=== PATIENT | female | born 1985 | race Asian ===

== ENCOUNTER 2017-10-19 13:50 | Observation (INO) | payer OTHER ==
[~2017-10-19] VITALS: Ht 154.9 cm; Wt 73.0 kg
== END 2017-10-19 15:05 | disposition home or self-care (01) ==
LOC: SPU 13:50
PROVIDERS: ADMIT Specialist; ATTEND Specialist
DX: O36.8130 Decreased fetal movements, third trimester, not applicable or unspecified (principal); Z3A.39 39 weeks gestation of pregnancy
CPT/HCPCS: 59025; 76815; 81002; G0378

== ENCOUNTER 2017-11-03 17:08 | Inpatient (IN) | payer OTHER ==
[~2017-11-03] VITALS: Ht 154.9 cm; Wt 74.8 kg
[2017-11-03] MEDS ORDERED: OXYTOCIN/0.9 % SODIUM CHLORIDE 1,000 ML IV SCH (21:52)
[2017-11-03] MEDS ORDERED: LR 1,000 ML IV SCH (21:52)
[2017-11-03] MEDS ORDERED: DINOPROSTONE 10 MG SUPP VG ONE (22:00)
[2017-11-03] MEDS ORDERED: TERBUTALINE SULFATE 1 MG/ML VIAL SUBCUT ONE (22:00)
[2017-11-03] MEDS ORDERED: NALBUPHINE HCL 10 MG/ML AMP IVP PRN (22:00)
[2017-11-03] MEDS ORDERED: NALBUPHINE HCL 10 MG/ML AMP IM PRN (22:00)
[2017-11-03 22:51] LABS: BASOPHILS % (AUTO) 0.4 % (0.0-2.0); EOSINOPHILS # (AUTO) 0.1 K/uL (0.0-0.4); HEMATOCRIT 32.7 % (36-48); LYMPHOCYTES # (AUTO) 1.6 K/uL (1.0-5.5); LYMPHOCYTES % (AUTO) 21.4 % (20.5-51.5); MEAN CORPUSCULAR HEMOGLOBIN 31 pg (27-31); MEAN CORPUSCULAR HGB CONC 34 % (32-36); MEAN CORPUSCULAR VOLUME 92 fL (79.0-98.0); MONOCYTES # (AUTO) 0.6 K/uL (0.0-1.0); MONOCYTES % (AUTO) 8.4 % (1.7-9.3); NEUTROPHILS # (AUTO) 5.1 K/uL (1.8-7.7); PLATELET COUNT (AUTO) 79 K/uL (130-430); RED BLOOD CELL COUNT(AUTO) 3.56 MIL/uL (4.2-6.2); RED CELL DISTRIBUTION WIDTH 13.9 % (9.0-15.0); WHITE BLOOD COUNT (AUTO) 7.4 K/uL (4.8-10.8)
[2017-11-03 23:13] LABS: NEUTROPHILS % (AUTO) 68.8 % (40.0-70.0)
[2017-11-04] MEDS ORDERED: CEFAZOLIN 2 GM IVPB PREMIX 50 ML IV ONE (09:45)
[2017-11-04] MEDS ORDERED: fentaNYL CITRATE/PF 100 MCG/2 ML AMP IVP PRN (13:15)
[2017-11-04] MEDS ORDERED: ONDANSETRON HCL 4 MG/2 ML VIAL IVP PRN (13:15)
[2017-11-04] MEDS ORDERED: KETOROLAC TROMETHAMINE 30 MG VIAL IVP PRN (13:15)
[2017-11-04] MEDS ORDERED: SEVOFLURANE 15 MIN GAS INH ONE (13:40)
[2017-11-04] MEDS: fentaNYL CITRATE/PF 100 MCG/2 ML AMP IVP PRN ×2 (13:40→14:10)
[2017-11-04] MEDS ORDERED: fentaNYL CITRATE/PF 100 MCG/2 ML AMP ONE ×2 (13:40→13:45)
[2017-11-04] MEDS ORDERED: NS 1000 ML IV.SOLN IV ONE (13:40)
[2017-11-04] MEDS ORDERED: ROCURONIUM BROMIDE 10 MG/ML (ZEMURON) ONE (13:40)
[2017-11-04] MEDS ORDERED: MIDAZOLAM HCL 5 MG/ML VIAL (VERSED) IV ONE (13:40)
[2017-11-04] MEDS ORDERED: LR 1,000 ML IV.SOLN IV ONE (13:40)
[2017-11-04] MEDS ORDERED: PROPOFOL 200MG/ 20ML VIAL (DIPRIVAN) IV ONE (13:40)
[2017-11-04] MEDS ORDERED: LR 1,000 ML IV SCH (14:23)
[2017-11-04] MEDS ORDERED: OXYTOCIN/0.9 % SODIUM CHLORIDE 1,000 ML IV ONE (14:23)
[2017-11-04] MEDS ORDERED: BISACODYL 10 MG/SUPPOSITORY RC PRN (14:30)
[2017-11-04] MEDS ORDERED: OXYCODONE/ACETAMINOPHEN 5-325 TABLET PO PRN (14:30)
[2017-11-04] MEDS ORDERED: DIPH-TET-PERTUS Vaccine 0.5 ML VIAL (ADACEL) I.M. PRN (14:30)
[2017-11-04] MEDS ORDERED: HYDROcodone/ACETAMIN 5-325 MG TAB (NORCO/ VICODIN) PO PRN (14:30)
[2017-11-04] MEDS ORDERED: LANOLIN 7 GM OINT. TP PRN (14:30)
[2017-11-04] MEDS ORDERED: MEASLES,MUMPS&RUBELLA VACC/PF 12500 UNIT/0.5 ML VIAL SUBQ PRN (14:30)
[2017-11-04] MEDS ORDERED: RHO(D) IMMUNE GLOBULIN/MALTOSE 1500 UNITS/1.3 ML (WINHRO) IM PRN (14:30)
[2017-11-04] MEDS ORDERED: SENNOSIDES/DOCUSATE SODIUM 1 TAB TABLET(SENOKOT-S) PO PRN (14:30)
[2017-11-04 16:30] VITALS: BP_SYST 108
[2017-11-04] MEDS: OXYCODONE/ACETAMINOPHEN 5-325 TABLET PO PRN (17:00)
[2017-11-04] MEDS: CEFAZOLIN 1 GM IVPB PREMIX 50 ML IV SCH (18:00)
[2017-11-04] MEDS ORDERED: TEMAZEPAM 15 MG CAPSULE PO PRN (21:00)
[2017-11-05] MEDS: OXYCODONE/ACETAMINOPHEN 5-325 TABLET PO PRN ×3 (01:28→20:15)
[2017-11-05] MEDS: CEFAZOLIN 1 GM IVPB PREMIX 50 ML IV SCH ×2 (01:31→09:00)
[2017-11-05 07:20] LABS: MONOCYTES # (AUTO) 0.8 K/uL (0.0-1.0)
[2017-11-05 07:30] LABS: BASOPHILS % (AUTO) 0.2 % (0.0-2.0); EOSINOPHILS % (AUTO) 0.4 % (0.0-4.0); HEMATOCRIT 28.9 % (36-48); HEMOGLOBIN 9.5 g/dL (12.0-16.0); LYMPHOCYTES # (AUTO) 1.6 K/uL (1.0-5.5); LYMPHOCYTES % (AUTO) 12.6 % (20.5-51.5); MEAN CORPUSCULAR HEMOGLOBIN 30 pg (27-31); MEAN CORPUSCULAR HGB CONC 33 % (32-36); MEAN CORPUSCULAR VOLUME 91 fL (79.0-98.0); MONOCYTES % (AUTO) 6.4 % (1.7-9.3); NEUTROPHILS % (AUTO) 80.4 % (40.0-70.0); PLATELET COUNT (AUTO) 78 K/uL (130-430); RED BLOOD CELL COUNT(AUTO) 3.17 MIL/uL (4.2-6.2); RED CELL DISTRIBUTION WIDTH 13.9 % (9.0-15.0); WHITE BLOOD COUNT (AUTO) 12.4 K/uL (4.8-10.8)
[2017-11-05] MEDS ORDERED: IBUPROFEN 600 MG TABLET PO SCH (12:00)
[2017-11-06] MEDS: OXYCODONE/ACETAMINOPHEN 5-325 TABLET PO PRN ×5 (03:11→22:15)
[2017-11-06] MEDS: SIMETHICONE 80 MG TAB.CHEW PO PRN ×3 (03:12→17:57)
[2017-11-06 07:26] LABS: BASOPHILS % (AUTO) 0.3 % (0.0-2.0); EOSINOPHILS # (AUTO) 0.1 K/uL (0.0-0.4); EOSINOPHILS % (AUTO) 0.8 % (0.0-4.0); HEMATOCRIT 28.3 % (36-48); HEMOGLOBIN 9.2 g/dL (12.0-16.0); LYMPHOCYTES # (AUTO) 1.6 K/uL (1.0-5.5); LYMPHOCYTES % (AUTO) 15.8 % (20.5-51.5); MEAN CORPUSCULAR HEMOGLOBIN 30 pg (27-31); MEAN CORPUSCULAR HGB CONC 33 % (32-36); MEAN CORPUSCULAR VOLUME 92 fL (79.0-98.0); MONOCYTES # (AUTO) 0.6 K/uL (0.0-1.0); MONOCYTES % (AUTO) 6.3 % (1.7-9.3); NEUTROPHILS % (AUTO) 76.8 % (40.0-70.0); RED BLOOD CELL COUNT(AUTO) 3.08 MIL/uL (4.2-6.2); RED CELL DISTRIBUTION WIDTH 14.2 % (9.0-15.0); WHITE BLOOD COUNT (AUTO) 10.3 K/uL (4.8-10.8)
[2017-11-06 12:42] LABS: PLATELET COUNT (AUTO) 91 K/uL (130-430)
[2017-11-07] MEDS: OXYCODONE/ACETAMINOPHEN 5-325 TABLET PO PRN ×2 (05:48→11:56)
[2017-11-07] MEDS: DOCUSATE SODIUM 100 MG CAPSULE PO PRN ×2 (05:48→11:55)
[2017-11-07] MEDS: SIMETHICONE 80 MG TAB.CHEW PO PRN (11:55)
== END 2017-11-07 13:19 | disposition home or self-care (01) | DRG 766 ==
LOC: SPU 19:25
PROVIDERS: ADMIT Specialist; ATTEND Specialist
PROC: 10D00Z1 Extraction of Products of Conception, Low, Open Approach (ICD-10-PCS; principal; 2017-11-04 12:00)
DX: O99.12 Other diseases of the blood and blood-forming organs and certain disorders involving the immune mechanism complicating childbirth (principal); D69.6 Thrombocytopenia, unspecified; Z3A.39 39 weeks gestation of pregnancy; Z37.0 Single live birth
CPT/HCPCS: 36415; 81002-TC; 85025; 85049-TC; 86762; 86886; 86900; 86901; J0690; J2250; J2590; J2704; J3010; J7030; J7120